=== PATIENT | female | born 1985 | race Caucasian/White ===

== ENCOUNTER 2017-09-09 15:25 | Emergency (ER) | payer BC, SELFPAY ==
[2017-09-09 15:27] VITALS: BP 118/37; PULSE 115; RESP 16; TEMP 36.5; O2SAT 97; BMI 37.3
--- NOTE | 2017-09-09 15:50 | RAD_ITS ---
STUDY: X-RAY - LEFT ANKLE REASON FOR EXAM: Female, 32 years old. LEFT ANKLE PAIN AFTER ROLLING INJURY, SWELLING TECHNIQUE: 3 view(s) of the ankle. COMPARISON: None. FINDINGS: Normal visualized distal tibia and fibula. Normal medial and lateral malleoli. Normal tibiotalar articulation and ankle mortise. Normal visualized talus and calcaneus. The visualized subtalar, talonavicular, calcaneocuboid and tarsal articulations are normal. There is marked soft tissue swelling at the lateral aspect of the ankle suggesting edema. RAD/Ankle min 3 Views IMPRESSION: There is marked soft tissue swelling at the lateral aspect of the ankle suggesting edema. Electronically Signed: Yanely Stockton MD at 16:10 EDT Tel , Service support ,
[2017-09-09] MEDS: Ibuprofen 600 MG Tablet PO (15:57)
--- NOTE | 2017-09-09 16:09 | ED.VISSUMM ---
- ER Visit Summary Date of Service: 09/09/17 Chief Complaint: [Injury left ankle] History of Present Illness: The patient is a 32 F presents to the emergency department with left ankle injury that occurred today around 3 PM. Patient states that she was putting her child in a car seat when she accidentally rolled her left ankle. Patient did fall and she is not sure if she possibly may have passed out. Patient able to bear some weight but painful. Patient did feel a pop in her ankle. [] Physical Examination: [Left ankle-patient has soft tissue swelling mostly over the lateral malleolus. Patient has tenderness palpation over the lateral malleolus. Patient has no pain at the proximal fibular head. Patient has some mild discomfort over the fifth metatarsal. She is neurovascular intact distally. Tests/results; x-ray of left ankle showed no fractures only soft tissue swelling over the lateral malleolus.] Emergency Department Course and Treatment: [Patient was given air splint and crutches as well as 600 mg of ibuprofen] Treatment Plan: [Patient to ice and elevate the extremity and use ibuprofen as needed for discomfort] Disposition: [Discharged home in stable condition. Patient advised to follow-up with her primary care physician in 5-7 days.] Impression: [Left ankle sprain] This note was generated with [employer] dictation software. It may contain incorrect words, spelling, and punctuation that were not noted in review of the chart prior to signing ED Disposition - Plan for ED Patient: Chief Complaint: Lower Extremity Injury Referrals: Stevie Purcell III, MD [Primary Care Provider] -
--- NOTE | 2017-09-09 16:12 | ED.DCSUM_ITS ---
- ER Visit Summary Date of Service: 09/09/17 Chief Complaint: [Injury left ankle] History of Present Illness: The patient is a 32 F presents to the emergency department with left ankle injury that occurred today around 3 PM. Patient states that she was putting her child in a car seat when she accidentally rolled her left ankle. Patient did fall and she is not sure if she possibly may have passed out. Patient able to bear some weight but painful. Patient did feel a pop in her ankle. [] Physical Examination: [Left ankle-patient has soft tissue swelling mostly over the lateral malleolus. Patient has tenderness palpation over the lateral malleolus. Patient has no pain at the proximal fibular head. Patient has some mild discomfort over the fifth metatarsal. She is neurovascular intact distally. Tests/results; x-ray of left ankle showed no fractures only soft tissue swelling over the lateral malleolus.] Emergency Department Course and Treatment: [Patient was given air splint and crutches as well as 600 mg of ibuprofen] Treatment Plan: [Patient to ice and elevate the extremity and use ibuprofen as needed for discomfort] Disposition: [Discharged home in stable condition. Patient advised to follow- up with her primary care physician in 5-7 days.] Impression: [Left ankle sprain] This note was generated with [employer] dictation software. It may contain incorrect words, spelling, and punctuation that were not noted in review of the chart prior to signing ED Disposition - Plan for ED Patient: Chief Complaint: Lower Extremity Injury Referrals: Stevie Purcell III, MD [Primary Care Provider] -
--- NOTE | 2017-09-09 16:12 | ED.DEP ---
ED Disposition - Plan for ED Patient: Chief Complaint: Lower Extremity Injury Instructions: ED Sprain Ankle W X Ray Referrals: Stevie Purcell III, MD [Primary Care Provider] - 5-7 Days
== END 2017-09-09 17:07 | disposition home or self-care (01) ==
PROVIDERS: Emergency Provider Emergency Medicine; Family Provider Family Medicine; PCP Family Medicine
DX: S93.402A Sprain of unspecified ligament of left ankle, initial encounter (principal); X50.1XXA Overexertion from prolonged static or awkward postures, initial encounter; Y93.89 Activity, other specified; Y92.89 Other specified places as the place of occurrence of the external cause; Y99.8 Other external cause status
CPT/HCPCS: 73610; 99284

== ENCOUNTER → 2019-06-19 | Outpatient (CLI) | payer OTHER, SELFPAY ==
[2019-03-12 10:21] VITALS: BMI 37.3
[2019-06-19 13:30] LABS: Vitamin D,25 Hydroxy 60.1 ng/mL (29.95-100.01)
== END | disposition home or self-care (01) ==
LOC: LAB 12:31 → PAVLAB 12:36
PROVIDERS: PCP Family Medicine; Referring Provider Nurse Practitioner Women's Health; Visit Provider Nurse Practitioner Women's Health
DX: E55.9 Vitamin D deficiency, unspecified (principal)
CPT/HCPCS: 36415; 82306

== ENCOUNTER → 2019-10-30 | Outpatient (CLI) | payer OTHER, SELFPAY ==
[2019-06-25 10:04] VITALS: BMI 37.3
[2019-10-30 16:16] LABS: Vitamin D,25 Hydroxy 67.1 ng/mL
== END | disposition home or self-care (01) ==
LOC: PAVLAB 15:24
PROVIDERS: PCP Family Medicine; Referring Provider Nurse Practitioner Women's Health; Visit Provider Nurse Practitioner Women's Health
DX: Z13.21 Encounter for screening for nutritional disorder (principal)
CPT/HCPCS: 36415; 82306

== ENCOUNTER → 2020-03-03 | Outpatient (CLI) | payer OTHER, SELFPAY ==
[2020-03-03 10:29] VITALS: BMI 33.5
[2020-03-07 05:49] LABS: HPV APTIMA, High Risk Negative (Negative)
== END | disposition home or self-care (01) ==
LOC: LABSPEC 13:49
PROVIDERS: Referring Provider Nurse Practitioner Women's Health; Visit Provider Nurse Practitioner Women's Health
DX: Z12.4 Encounter for screening for malignant neoplasm of cervix (principal)
CPT/HCPCS: 87624; 88175; G0145

== ENCOUNTER → 2022-08-03 | Outpatient (CLI) | payer OTHER, SELFPAY ==
--- NOTE | 2022-08-03 16:22 | US_ITS ---
STUDY: ULTRASOUND OF THE FEMALE PELVIS - COMPLETE REASON FOR EXAM: Female, 37 years old. Abnormal Uterine Bleeding LMP: August 03, 2022. TECHNIQUE: Transabdominal and Transvaginal TECHNICAL QUALITY: Adequate. COMPARISON: None. FINDINGS: The uterus is anteverted and is in a midline position. The uterus measures 9.3 cm x 6.1 cm x 4.5 cm. Normal uterine cervix. The endometrium measures 4.5 mm in thickness, and is hyperechoic. There is no demonstrated endometrial mass. There is no demonstrated myometrial mass. I.U.D. - The patient does not have an I.U.D. The right ovary is visualized. The right ovary measures 2.5 cm x 2.1 cm x 2 cm. There is no right ovarian cyst or ovarian mass. There is no visualized right adnexal mass or complex lesion. There is normal arterial and normal venous vascularity. The left ovary is visualized. The left ovary measures 2.8 cm x 1.9 cm x 1.7 cm. There is no left ovarian cyst or ovarian mass. There is no visualized left adnexal mass or complex lesion. There is normal arterial and normal venous vascularity. There is no fluid in the cul-de-sac. The pre void volume of the bladder was 440 ml. US/Pelvic w/ Transvaginal IMPRESSION: Normal female pelvis. Electronically Signed: Tyson Snyder MD at 15:00 EDT ,
== END | disposition home or self-care (01) ==
PROVIDERS: PCP Nurse Practitioner Family; Referring Provider Obstetrics & Gynecology; Visit Provider Obstetrics & Gynecology
DX: N93.9 Abnormal uterine and vaginal bleeding, unspecified (principal)
CPT/HCPCS: 76830; 76856

== ENCOUNTER → 2022-09-21 | Outpatient (CLI) | payer OTHER, SELFPAY ==
[2022-09-21 12:20] LABS: Estradiol 84.5 pg/mL; Follicle Stimulating Hormone 3.3 mIU/mL; Luteinizing Hormone 2.2 mIU/mL; Thyroid Stim Hormone (TSH) 2.03 uIU/mL (0.358-3.74)
== END | disposition home or self-care (01) ==
LOC: PAVLAB 11:28
PROVIDERS: PCP Nurse Practitioner Family; Referring Provider Obstetrics & Gynecology; Visit Provider Obstetrics & Gynecology
DX: N93.9 Abnormal uterine and vaginal bleeding, unspecified (principal); Z13.29 Encounter for screening for other suspected endocrine disorder
CPT/HCPCS: 36415; 82670; 83001; 83002; 84443